=== PATIENT | male | born 1985 | race Caucasian/White ===

== ENCOUNTER 2019-05-07 22:56 | Emergency (ER) | payer SELFPAY ==
[2019-05-07 22:57] VITALS: BP 149/77; PULSE 85; RESP 12; TEMP 36.8; O2SAT 95; BMI 40.6
--- NOTE | 2019-05-07 23:31 | ED.RN ---
PT STATES HE FELL PULLING OUT A JC THIS MORNING AND FELT HIS SHOULDER POP OUT OF TE=HE SOCKET, PT STATES HE HAS HAD THIS PROBLEM FOR A WHILE AND POPPED IT BACK IN HIMSELF AND NOW HIS HAND AND ARM ARE NUMB AND TINGLY.
--- NOTE | 2019-05-08 00:05 | RAD_ITS ---
HISTORY: [facility]/JTpt fell doing yardwork Exam: Right Shoulder COMPARISON: None FINDINGS: # of images incl. paperwork: 2 XR Shoulder Min 2 Views: The humeral head is well-positioned within the glenoid fossa. No fracture or subluxation. The acromioclavicular joint is normal. The adjacent chest is unremarkable. RAD/Shoulder min 2 Views IMPRESSION: Normal right shoulder. at 0028 Reported and signed by: Yakov Elizabeth MD Electronically Signed: Yakov Elizabeth MD at 0:26 EDT Tel , Service support ,
--- NOTE | 2019-05-08 00:06 | ED.DCSUM_ITS ---
- ER Visit Summary Date of Service: 05/08/19 Chief Complaint: Right shoulder pain History of Present Illness: The patient is a 33 M who presents with right shoulder pain. He has a history of frequent prior dislocations. He is never followed up with orthopedics. He states that he tripped over a tree stump and reach out to grab onto something and his right shoulder popped out. He was able to get it back in. However he is having more pain than he usually does in the right shoulder and also developed some numbness and tingling in his thumb in the palm of his hand near the base of his thumb. He otherwise denies recent illness. No fevers chest pain shortness of breath. He is borderline diabetic but on no medications and denies any other medical history. Physical Examination: Afebrile vitals unremarkable Heart regular rate and rhythm Lungs are clear Patient does have some shoulder tenderness more focally over the AC joint he is able to bring his shoulder to 90 degrees of abduction and hold it however he does have pain with range of motion and was really unable to tolerate abduction past this point due to pain Heart regular rate and rhythm Lungs are clear Patient planes of decreased sensation light touch in the thumb he has active full range of motion normal strength normal opposition of digits Test Results: Right shoulder x-ray is normal Emergency Department Course and Treatment: Patient was given naproxen for pain. X-ray is normal. Patient was referred to orthopedics. He understands to return for new or worsening symptoms, otherwise to follow-up as an outpatient. Patient discharged. Treatment Plan: [] Disposition: Discharge Impression: Right shoulder pain Hand paresthesias This note was generated with [employer] dictation software. It may contain incorrect words, spelling, and punctuation that were not noted in review of the chart prior to signing ED Disposition - Plan for ED Patient: Referrals: NOT,DEFINED [NON-STAFF] -
--- NOTE | 2019-05-08 00:54 | ED.DEP ---
ED Disposition - Plan for ED Patient: Instructions: Shoulder Sprain Referrals: NOT,DEFINED [NON-STAFF] - Avni Arias DO [STAFF PHYSICIAN] -
[2019-05-08] MEDS: Naproxen 500 MG Tablet PO (01:06)
== END 2019-05-08 01:08 | disposition home or self-care (01) ==
LOC: ED 05-08 00:13
PROVIDERS: Emergency Provider Emergency Medicine
DX: M25.511 Pain in right shoulder (principal); R20.2 Paresthesia of skin
CPT/HCPCS: 73030; 99283